=== PATIENT | female | born 1995 | race Caucasian/White ===

== ENCOUNTER 2024-01-28 02:52 | Emergency (ER) | payer BC, SELFPAY ==
[2024-01-28 02:54] VITALS: BP 112/74
--- NOTE | 2024-01-28 03:10 | ED.GENMED ---
History of Present Illness
General
Chief Complaint: Abdominal Pain
Source: patient
Exam Limitations: none
Time Seen by Provider: 01/28/24 03:00
Travel History
Have you had any contact with someone who has COVID-19?: No
Do you have any symptoms of coronavirus? Fever > 100 degrees, chills, cough, shortness of breath, sore throat, loss of taste or smell, muscle aches, or headache?: No
History of Present Illness
History of Present Illness:
See MDM
Past History
Past History
ED Past Medical History: Other (Complex right ovarian cyst)
ED Past Surgical History: None
Social History
Tobacco: Non-smoker
Alcohol: None
Personal: Single
Living: with family
Employment: Employed
Family History
Family History: Other (Noncontributory)
Phy Exam
Physical Exam
Physical Exam:
See MDM
Course
Orders/Labs/Results
Orders:
Orders
01/28/24 03:09
Ketorolac [Toradol] 30 mg IV NOW STA
US Pelvis [US Pelvis Only (non-obstetric)] Urgent
Comment:
Reason For Exam: LLQ pain
01/28/24 03:10
Test Result ONCE
01/28/24 03:12
Complete Blood Count/With Diff Urgent
Comprehensive Metabolic Panel Urgent
HCG, Serum Qualitative Screen Urgent
01/28/24 03:24
0.9% Sodium Chloride 1000 ml [Nss] 1,000 ml IV BOLUS
Abnormal Lab Results
01/28/24
03:12
WBC 11.6 H 10^3/uL
(4.8-10.8)
MCH 31.1 H pg
(27.0-31.0)
Absolute Neuts (auto) 9.0 H 10^3/uL
(1.4-6.5)
Absolute Monos (auto) 0.7 H 10^3/uL
(0.1-0.6)
Neutrophils % 77.4 H %
(42.2-75.2)
Lymphocytes % 15.4 L %
(20.5-51.1)
Glucose 128 H mg/dl
(70-99)
01/28/24 03:12
01/28/24 03:12
Vital Signs
Initial and Last Documented VS:
Initial Vital Signs
Temp Pulse Resp BP Pulse Ox
98.1 F 80 18 112/74 98
01/28/24 02:54 01/28/24 02:54 01/28/24 02:54 01/28/24 02:54 01/28/24 02:54
Last Documented Vital Signs
Temp Pulse Resp BP Pulse Ox
98.1 F 80 18 112/74 98
01/28/24 02:54 01/28/24 02:54 01/28/24 02:54 01/28/24 02:54 01/28/24 02:54
MDM/Problems Addressed
Differential Diagnosis Includes:
HPI and MDM Narrative:
28-year-old female presenting with left lower quadrant pain. The triage note references right lower quadrant pain but patient states it is on the left. She is concerned she has another ovarian cyst.
Patient has a history of endometriosis and ruptured ovarian cyst.
She denies urinary symptoms
Will give dose of Toradol and obtain basic blood work and pelvic ultrasound
Physical exam
General: Mildly uncomfortable
HEENT: protecting airway
Neck: appears supple
CV: No evidence of cyanosis
Resp: No accessory muscle use
Abd: Non-distended. Left lower quadrant pain. Negative McBurney sign. No rebound
Extremities: No deformities
Neuro: alert
Psych: Normal affect
Skin: Intact
Problems Addressed including Acute and Chronic Conditions affecting care:
1. Left lower quadrant pain
Acuity: acute
Prognosis: stable
Details: Given history of ovarian cyst, will obtain ultrasound rule out torsion. Will give Toradol
Updates
Ultrasound suggests left ovarian cyst versus endometrioma. There is no evidence of torsion. On reassessment, patient feeling much better. Will prescribe NSAIDs and discussed follow-up with her CONCRETE POURING SUPERVISOR
Differential Diagnosis (but not limited to): Ovarian cyst, kidney stone, ruptured ovarian
Testing considered: CT abdomen/pelvis
Drug therapy (if applicable): OTC meds, please see d/c instruction regarding Rx drugs
Amount and/or Complexity of Data Reviewed
Clinical info obtained from: Patient
External data reviewed: N/A
Labs I independently reviewed (but not limited to): hCG negative
Radiology: Ultrasound report
Pulse Ox: not hypoxic
EKG independently reviewed: N/A
Computational Geneticist: N/A
Critical Care: N/A
Risk of Complication:
Social Determinants of health: Good social support
Discussed with other providers: N/A
Escalation of Care includes Admit/Obs: After being observed in the Emergency Department, pt stable for discharge.
Occasional wrong word or 'sound a like' substitutions may have occurred due to the inherent limitations of voice recognition software. Read the chart carefully and recognize, using context, where substitutions have occurred.
*Critical Care Note
Total Time (30-74mins, 75-104mins- exclusive of procedures): Not Applicable
ED Attending Note
-
Portions of this chart may have been created with voice recognition software.� Occasional wrong word or��sound alike� substitutions may have occurred due to the inherent limitations of voice recognition software.
Discharge Plan
Departure
Patient Disposition: Home (Routine Discharge)
Date of Disposition: 01/28/24
Time of Disposition: 05:39
Patient with high blood pressure during this ER visit?: No
Discharge Problem:
Ovarian cyst
Instructions: Ovarian Cyst (DC)
Prescriptions:
New
diclofenac potassium 50 mg tablet
50 mg PO BID Qty: 20 0RF
No Action
escitalopram oxalate [Lexapro] 20 mg Tablet
20 mg PO DAILY
ibuprofen [Advil] 200 mg Tablet
400 mg PO DAILYPRN PRN (Reason: mild pain)
oxycodone 5 mg tablet
5 mg PO Q4H PRN (Reason: Pain) Qty: 10 0RF
ondansetron 8 mg tablet,disintegrating
8 mg PO TID PRN (Reason: nausea and vomiting) Qty: 20 0RF
Referrals:
Perez Farah MD [Family Provider] -
Activity Restrictions/Additional Instructions:
Please return for any worsening symptoms.
You may return at any time if you have further concerns.
Please follow up with your CONCRETE POURING SUPERVISOR doctor at the first available appointment, preferably this week.
Thank you for choosing [facility].
Interventions
Interventions:
*Risk Screen - Suicide Last Done: 01/28/24 02:54
*Neglect/Abuse Screening Last Done: 01/28/24 02:54
ED- Fall Risk Assessment Last Done: 01/28/24 03:38
HB-Kqkqyp-Xhfvzugxpf Assessment Last Done: 01/28/24 03:38
ED-Female Genitourinary Assessment Last Done: 01/28/24 03:38
Discharge Date and Time
Print Language: PALAUAN
[2024-01-28] MEDS: TORADOL 30 MG IV (03:18)
[2024-01-28] MEDS: NSS 1000 IV (03:24)
[2024-01-28 03:29] LABS: % Basophils 0.3 % (0-2); % Eosinophils 0.9 % (0-6); % Immature Granulocytes 0.3 % (0-0.5); % Lymphocytes 15.4 % (20.5-51.1); % Monocytes 5.7 % (1.7-9.3); % Neutrophils 77.4 % (42.2-75.2); Absolute Eosinophils 0.1 10^3/uL (0-0.7); Absolute Lymphocytes 1.8 10^3/uL (1.2-3.4); Absolute Monocytes 0.7 10^3/uL (0.1-0.6); Hematocrit 37.3 % (37.0-47.0); Hemoglobin 13.1 g/dL (12.0-16.0); Mean Corp Hgb Conc. 35.1 g/dL (33.0-37.0); Mean Corpuscular Hgb 31.1 pg (27.0-31.0); Mean Corpuscular Volume 88.6 fL (81.0-99.0); Mean Platelet Volume 10.3 fL (7.4-10.4); Nucleated Red Blood Cells % 0 %; Platelet Count 266 10^3/uL (130-400); Red Blood Cell Count 4.21 10^6/uL (4.20-5.40); Red Cell Dist. Width 12.9 % (11.5-14.5); White Blood Cell Count 11.6 10^3/uL (4.8-10.8)
[2024-01-28 03:32] VITALS: BMI 31.8
[2024-01-28 03:49] LABS: HCG, Serum Qualitative Screen Negative
[2024-01-28 03:57] LABS: ALT (SGPT) 16 U/L (0-35); AST (SGOT) 20 U/L (14-36); Albumin 4.3 g/dl (3.5-5.0); Alkaline Phosphatase 87 U/L (38-126); Blood Urea Nitrogen 13 mg/dl (7-17); Calcium 9.6 mg/dl (8.4-10.2); Carbon Dioxide 26 mmol/L (22-30); Chloride 107 mmol/L (98-107); Estimated Creatinine Clearance > 125 ml/min; Glucose 128 mg/dl (70-99); Potassium 4.2 mmol/L (3.5-5.1); Sodium 141 mmol/L (135-145); Total Bilirubin 0.3 mg/dl (0.2-1.3); Total Protein 6.9 g/dl (6.3-8.2); eGFR > 60.00
== END 2024-01-28 05:53 | disposition home or self-care (01) ==
LOC: EMR 02:52
PROVIDERS: EMERGENCY PHYSICIAN Student in an Organized Health Care Education/Training Program; FAMILY PHYSICIAN Internal Medicine Geriatric Medicine
DX: N83.201 Unspecified ovarian cyst, right side (principal); Z90.721 Acquired absence of ovaries, unilateral
CPT/HCPCS: 99284; 96374; 96361; 76856; 80053; 84703; 85025

== ENCOUNTER 2024-01-30 16:46 | Emergency (ER) | payer BC, SELFPAY ==
[2024-01-30 16:48] VITALS: BP 128/81
[2024-01-30 20:08] VITALS: BP 109/71
[2024-01-30] MEDS: DILAUDID IV (20:30)
[2024-01-30] MEDS: TORADOL 15 MG IV (20:30)
[2024-01-30] MEDS: NSS 500 IV (20:30)
[2024-01-30] MEDS: PROTONIX IV 40 MG IV (20:31)
[2024-01-30 21:00] VITALS: BP 115/58
--- NOTE | 2024-01-30 21:09 | ED.GENMED ---
History of Present Illness
General
Chief Complaint: Abdominal Pain
Source: patient and family
Exam Limitations: none
Time Seen by Provider: 01/30/24 19:29
Nursing documentation reviewed up to this point in time: agreed with
Travel History
Have you had any contact with someone who has COVID-19?: No
Do you have any symptoms of coronavirus? Fever > 100 degrees, chills, cough, shortness of breath, sore throat, loss of taste or smell, muscle aches, or headache?: No
History of Present Illness
History of Present Illness:
Patient with chronic lower abdominal/pelvic pain secondary to endometriosis, currently taking Orilissa, as prescribed by her WEATHERIZATION DIRECTOR physician at [facility], presents to ED secondary to worsening pain over the past 3 days. Patient was evaluated
in ED 2 days ago for similar complaint. Since then, patient states that her pain has worsened. Denies vomiting, although with nausea sensation. Denies diarrhea. Denies trauma. Denies fever or chills. Patient has an appointment with her WEATHERIZATION DIRECTOR
physician in 2 weeks. Pt was given diclofenac 2 days ago at discharge, which she has been taking with mild relief in symptoms.
Past History
Past History
ED Past Medical History: Other (Complex right ovarian cyst)
ED Past Surgical History: None
Social History
Tobacco: Non-smoker
Alcohol: None
Personal: Single
Living: with family
Employment: Employed
Family History
Family History: Other (Noncontributory)
Review of Systems
Review of Systems
Allergies reviewed?: Yes
All Other Systems: ROS reviewed and negative except as documented in HPI and ROS
Constitutional: Reports no symptoms
EENT: Reports no symptoms
Respiratory: Reports no symptoms
Cardiac: Reports no symptoms
ABD/GI: Reports abdominal pain and nausea; Denies vomiting
: Reports no symptoms
Musculoskeletal: Reports no symptoms
Skin: Reports no symptoms
Neurological: Reports no symptoms
Phy Exam
Physical Exam
Physical Exam:
Physical Exam
General: mild painful distress, not acutely ill. afebrile
Head: nc/at. eomi
Neck: supple. normal range of motion.
Heart: s1/s2 regular rate and rhythm, no murmur. equal radial pulses.
Lungs: no acute respiratory distress. clear bilaterally
Abdomen: normal bowel sounds. mild diffuse tenderness to palpation, without guarding
Neuro: alert and oriented. no focal neurological deficits
Skin: no rash
Psychiatric: well kept. interactive and cooperative
Extremities: no edema. no calf tenderness.
Course
Orders/Labs/Results
Orders:
Orders
01/30/24 20:18
HYDROmorphone [Dilaudid] 0.5 mg IV NOW STA
Ketorolac [Toradol] 15 mg IV NOW STA
01/30/24 20:19
0.9% Sodium Chloride 500 ml [Nss] 500 ml IV BOLUS
Pantoprazole [Protonix IV] 40 mg IV NOW STA
01/30/24 21:54
HYDROmorphone [Dilaudid] 0.5 mg IV NOW STA
01/30/24 22:14
Ondansetron Orally Disint [Zofran Odt (Orally Disintegrating)] 4 mg .ROUTE .STK-MED ONE
01/30/24 22:15
Ondansetron Orally Disint [Zofran Odt (Orally Disintegrating)] 4 mg PO NOW STA
Vital Signs
Initial and Last Documented VS:
Initial Vital Signs
Temp Pulse Resp BP Pulse Ox
98.4 F 94 16 128/81 100
01/30/24 16:48 01/30/24 16:48 01/30/24 16:48 01/30/24 16:48 01/30/24 16:48
Last Documented Vital Signs
Temp Pulse Resp BP Pulse Ox
98.4 F 92 16 106/55 95
01/30/24 16:48 01/30/24 22:04 01/30/24 16:48 01/30/24 22:04 01/30/24 22:04
MDM/Problems Addressed
MDM/Problems Addressed:
Patient's recent ED visit along with previous imaging studies reviewed and discussed with on-call WEATHERIZATION DIRECTOR physician, Dr. Nayak. Recommends urgent f/u with her ground mixer physician for re-evaluation. In the meantime, advised to discuss with her ground mixer physician
about increasing Orlissa to twice daily for better symptom control.
Patient reports moderate improvement symptoms after treatment. Patient and mother agree with treatment plan.
*Critical Care Note
Total Time (30-74mins, 75-104mins- exclusive of procedures): Not Applicable
ED Attending Note
-
Portions of this chart may have been created with voice recognition software.� Occasional wrong word or��sound alike� substitutions may have occurred due to the inherent limitations of voice recognition software.
Discharge Plan
Departure
Patient Disposition: Home (Routine Discharge)
Date of Disposition: 01/30/24
Time of Disposition: 21:55
Patient with high blood pressure during this ER visit?: Yes
Discharge Problem:
Pelvic pain
Instructions: Pelvic Pain (DC)
Prescriptions:
No Action
escitalopram oxalate [Lexapro] 20 mg Tablet
20 mg PO DAILY
ibuprofen [Advil] 200 mg Tablet
400 mg PO DAILYPRN PRN (Reason: mild pain)
oxycodone 5 mg tablet
5 mg PO Q4H PRN (Reason: Pain) Qty: 10 0RF
ondansetron 8 mg tablet,disintegrating
8 mg PO TID PRN (Reason: nausea and vomiting) Qty: 20 0RF
diclofenac potassium 50 mg tablet
50 mg PO BID Qty: 20 0RF
Referrals:
Perez Farah MD [Family Provider] -
Activity Restrictions/Additional Instructions:
As discussed, please call your WEATHERIZATION DIRECTOR physician tomorrow morning for earlier appointment. In the meantime, please take your already prescribed medication, Orilissa, twice daily along with diclofenac.
Interventions
Interventions:
*Risk Screen - Suicide Last Done: 01/30/24 22:53
*General Assessment Last Done: 01/30/24 22:53
*Neglect/Abuse Screening Last Done: 01/30/24 22:53
ED- Fall Risk Assessment Last Done: 01/30/24 16:48
*ED COVID-19 Vaccine History Last Done: 01/30/24 16:48
*Nursing Disposition Last Done: 01/30/24 22:53
UP-Glpqgg-Fcggwejuat Assessment Last Done: 01/30/24 18:20
Discharge Date and Time
Discharge Date/Time: 01/30/24 22:54
Print Language: GUATEMALAN
[2024-01-30] MEDS: DILAUDID 0.5 MG IV ×2 (21:11→22:03)
[2024-01-30 21:53] VITALS: BP 115/58
[2024-01-30 22:00] VITALS: BP 106/55
[2024-01-30 22:04] VITALS: BP 106/55
[2024-01-30] MEDS: ZOFRAN ODT (ORALLY DISINTEGRATING) 4 MG PO (22:17)
== END 2024-01-30 22:54 | disposition home or self-care (01) ==
LOC: EMR 16:46
PROVIDERS: EMERGENCY PHYSICIAN Emergency Medicine; FAMILY PHYSICIAN Internal Medicine Geriatric Medicine
DX: R10.2 Pelvic and perineal pain (principal); R03.0 Elevated blood-pressure reading, without diagnosis of hypertension
CPT/HCPCS: 99284; 96374; 96375 ×2; 96376

== ENCOUNTER 2024-02-05 06:47 | Day surgery (SDC) | payer BC, SELFPAY ==
[2024-02-04 19:06] VITALS: BP 132/99
[2024-02-04 19:32] LABS: % Basophils 0.4 % (0-2); % Eosinophils 3.9 % (0-6); % Immature Granulocytes 0.4 % (0-0.5); % Lymphocytes 46.8 % (20.5-51.1); % Monocytes 6.1 % (1.7-9.3); % Neutrophils 42.4 % (42.2-75.2); Absolute Eosinophils 0.3 10^3/uL (0-0.7); Absolute Lymphocytes 3.6 10^3/uL (1.2-3.4); Absolute Monocytes 0.5 10^3/uL (0.1-0.6); Absolute Neutrophils 3.2 10^3/uL (1.4-6.5); Hemoglobin 11.4 g/dL (12.0-16.0); Mean Corp Hgb Conc. 33.5 g/dL (33.0-37.0); Mean Corpuscular Hgb 30.3 pg (27.0-31.0); Mean Corpuscular Volume 90.4 fL (81.0-99.0); Mean Platelet Volume 9.9 fL (7.4-10.4); Nucleated Red Blood Cells % 0 %; Platelet Count 376 10^3/uL (130-400); Red Blood Cell Count 3.76 10^6/uL (4.20-5.40); Red Cell Dist. Width 12.5 % (11.5-14.5); White Blood Cell Count 7.7 10^3/uL (4.8-10.8)
[2024-02-04 19:52] LABS: ALT (SGPT) 14 U/L (0-35); AST (SGOT) 18 U/L (14-36); Albumin 4.2 g/dl (3.5-5.0); Alkaline Phosphatase 63 U/L (38-126); Blood Urea Nitrogen 15 mg/dl (7-17); Calcium 9.8 mg/dl (8.4-10.2); Carbon Dioxide 25 mmol/L (22-30); Chloride 104 mmol/L (98-107); Glucose 114 mg/dl (70-99); Lipase 67 U/L (23-300); Sodium 138 mmol/L (135-145); Total Bilirubin 0.3 mg/dl (0.2-1.3); Total Protein 6.9 g/dl (6.3-8.2); eGFR > 60.00
--- NOTE | 2024-02-04 20:08 | ED.GENMED ---
History of Present Illness
General
Chief Complaint: Abdominal Pain
Time Seen by Provider: 02/04/24 20:08
Travel History
Have you had any contact with someone who has COVID-19?: No
Do you have any symptoms of coronavirus? Fever > 100 degrees, chills, cough, shortness of breath, sore throat, loss of taste or smell, muscle aches, or headache?: No
History of Present Illness
History of Present Illness:
HPI: Patient presents with abdominal pelvic pain now with increasing pain.. She was seen in our ED 1 week ago[address] She saw Dr. Farias in the past and saw Dasha Hernandez once in the past. The pain is now described as excruciating.
EXAM:
GENERAL: The patient appears extremely uncomfortable upon arrival
HEENT: Moist oral mucosa
CARDIOVASCULAR: No murmurs, normal heart rate, regular rhythm, No chest wall tenderness
PULMONARY: No respiratory distress, breath sounds are clear and equal
ABDOMEN: Soft with no peritoneal signs but has severe diffuse tenderness
NEUROLOGIC: Excellent strength all extremities, no coordination deficits
PSYCHIATRIC: Appropriate mental status, normal insight and judgement
EXTREMITIES: Nontender, no edema, moves all extremities equally
SKIN: No rash, no lesions
TIME OF INITIAL ENCOUNTER: 8:30 PM
NUMBER AND COMPLEXITY OF PROBLEMS ADDRESSED AT THE ENCOUNTER
� Chronic conditions affecting care: Has had ovarian cysts, anxiety/depression
� Acute Exacerbation and/or Progression of Chronic Illness: This is an acute problem
� Differential Diagnosis includes: Ruptured cyst, ruptured mass, ruptured endometrioma, regular disease, bowel obstruction unlikely,
AMOUNT AND/OR COMPLEXITY OF DATA TO BE REVIEWED AND ANALYZED
� I performed an independent evaluation of and my interpretation is:
EKG:
CT: CT imaging shows concern for rupture of endometrioma in the low with hemoperitoneum
X-rays:
Laboratory Studies: White count 7.7, hemoglobin 11.4, chemistries including LFTs and lipase are normal
Other:
� Review of other/old records: I reviewed records, the patient had a pelvic ultrasound 1 week ago that showed no focal abnormality of the uterus, normal right ovary, and there was a 6.4 cm left ovarian mass likely representing an
endometrioma similar in size to the ultrasound from 2022
� Clinical information was obtained by an independent historian: I spoke to family member at bedside
� Prescriptions/Medications Considered but not given:
� Further testing considered but not performed:
RISK OF COMPLICATIONS AND/OR MORBIDITY OR MORTALITY OF PATIENT MANAGEMENT
� Social determinants of health affecting care: Lives at home
� Discussion with other providers: I discussed case with Dr. Samuel at 11:30 PM who will come in to evaluate the patient. At 12:30 AM, the Dr. Samuel is planning on taking patient to the OR.
� Escalation of care including admission/observation vs risk of discharge considered: CT does show concern for rupture of an endometrioma now measuring greater than 7 cm. Her hemoglobin has dropped in comparison to 1 week ago.
She arrived in severe pain was given analgesia.
Past History
Past History
ED Past Medical History: Other (Complex right ovarian cyst)
ED Past Surgical History: None
Social History
Tobacco: Non-smoker
Alcohol: None
Personal: Single
Living: with family
Employment: Employed
Family History
Family History: Other (Noncontributory)
Phy Exam
Physical Exam
Physical Exam:
See HPI
Course
Orders/Labs/Results
Orders:
Orders
02/04/24 19:27
CBC/With Diff [Complete Blood Count/With Diff] Urgent
CMP [Comprehensive Metabolic Panel] Urgent
HCG, Serum Qualitative Screen Urgent
Comment: ADD ON
Lipase Urgent
02/04/24 20:09
Add On- LAB Urgent
Tests Added?: hcg screen
02/04/24 20:18
CT Abd/pelvis W Iv Cont Urgent
Comment:
Reason For Exam: LLQ pain worsening; known L ov mass; recent US
HYDROmorphone [Dilaudid] 1 mg IV NOW STA
Ketorolac [Toradol] 15 mg IV NOW STA
Ondansetron Injectable [Zofran] 4 mg IV NOW STA
02/04/24 20:31
Add On- LAB Urgent
Tests Added?: hcg
02/04/24 23:46
0.9% Sodium Chloride 1000 ml [Nss] 1,000 ml IV BOLUS
Abnormal Lab Results
02/04/24
19:27
RBC 3.76 L 10^6/uL
(4.20-5.40)
Hgb 11.4 L g/dL
(12.0-16.0)
Hct 34.0 L %
(37.0-47.0)
Absolute Lymphs (auto) 3.6 H 10^3/uL
(1.2-3.4)
Creatinine 0.5 L mg/dL
(0.6-1.0)
Glucose 114 H mg/dl
(70-99)
02/04/24 19:27
02/04/24 19:27
Vital Signs
Initial and Last Documented VS:
Initial Vital Signs
Temp Pulse Resp BP Pulse Ox
98.5 F 95 17 132/99 97
02/04/24 19:06 02/04/24 19:06 02/04/24 19:06 02/04/24 19:06 02/04/24 19:06
Last Documented Vital Signs
Temp Pulse Resp BP Pulse Ox
98.5 F 82 17 112/57 97
02/04/24 19:06 02/04/24 23:49 02/04/24 19:06 02/04/24 23:49 02/04/24 19:06
*Critical Care Note
Total Time (30-74mins, 75-104mins- exclusive of procedures): Not Applicable
ED Attending Note
-
Portions of this chart may have been created with voice recognition software.� Occasional wrong word or��sound alike� substitutions may have occurred due to the inherent limitations of voice recognition software.
Discharge Plan
Departure
Prescriptions:
No Action
escitalopram oxalate [Lexapro] 20 mg Tablet
20 mg PO DAILY
ibuprofen [Advil] 200 mg Tablet
400 mg PO DAILYPRN PRN (Reason: mild pain)
oxycodone 5 mg tablet
5 mg PO Q4H PRN (Reason: Pain) Qty: 10 0RF
ondansetron 8 mg tablet,disintegrating
8 mg PO TID PRN (Reason: nausea and vomiting) Qty: 20 0RF
diclofenac potassium 50 mg tablet
50 mg PO BID Qty: 20 0RF
Referrals:
Perez Farah MD [Family Provider] -
Interventions
Interventions:
*Risk Screen - Suicide Last Done: 02/04/24 19:06
*General Assessment Last Done: 02/04/24 19:06
*Neglect/Abuse Screening Last Done: 02/04/24 19:06
ED- Fall Risk Assessment Last Done: 02/04/24 20:09
*ED COVID-19 Vaccine History Last Done: 02/04/24 19:32
LT-Xfoxog-Fimloccqde Assessment Last Done: 02/04/24 20:09
Discharge Date and Time
Print Language: BURMESE
[2024-02-04 20:09] VITALS: BMI 31.1
[2024-02-04] MEDS: DILAUDID 1 MG IV (20:26)
[2024-02-04] MEDS: TORADOL 15 MG IV (20:27)
[2024-02-04] MEDS: ZOFRAN 4 MG IV (20:27)
[2024-02-04 21:30] LABS: HCG, Serum Qualitative Screen Negative
[2024-02-04 23:49] VITALS: BP 112/57
[2024-02-05] VITALS (14 sets, daily range): BP systolic 103–127; BP diastolic 54–76
[2024-02-05] MEDS: NSS 1000 IV ×3 (00:13→16:14)
[2024-02-05] MEDS: DILAUDID 0.25 MG IV (01:27)
[2024-02-05] MEDS: ANCEF 5 MG IV (01:37)
[2024-02-05] MEDS: DILAUDID 0.5 MG IV ×2 (02:08→06:50)
--- NOTE | 2024-02-05 06:29 | OR.RPT ---
Operative Report
Operative Report
INTRAOPERATIVE CONSULT
DATE OF OPERATION: 02/05/24
SURGEON: Maurice Fairbanks MD
PREOPERATIVE DIAGNOSIS: Ruptured ovarian cyst with hemoperitoneum
POSTOPERATIVE DIAGNOSIS: Same
OPERATION: Diagnostic laparoscopy; per STEEL UNLOADER left oophorectomy
ASSISTANTS:
1. Jaelyn Samuel MD
ANESTHESIA: Geta
ESTIMATED BLOOD LOSS: Per STEEL UNLOADER op note
FINDINGS:
1. Left ovary with ruptured bleeding cyst; somewhat adherent to the retroperitoneum near the rectosigmoid requiring meticulous dissection
SPECIMENS:
1. Per STEEL UNLOADER op note
COMPLICATIONS: Per STEEL UNLOADER
INDICATIONS: The patient is a 28-year-old female who presented acutely to the [place] emergency department. Documentation in the EMR currently is limited, but appears the patient has been having acute abdominal pain that has worsened over the
last week. A CT scan was done showing likely ruptured ovarian cyst with hemoperitoneum, so the patient was taken to the OR by Dr. Samuel urgently. I received an intraoperative consult from her as the left ovary appeared adherent to the
rectosigmoid colon. I arrived shortly after receiving the message. The patient was intubated, under anesthesia, in lithotomy with yellowfin's and in Trendelenburg. There was a Mane umbilical port with 2 bilateral lower abdominal [address] Samuel showed me the area of bleeding from the ovary. There was clearly a large amount of clot that had been suctioned and a small area of active oozing from where the ovarian cyst had ruptured. She stated that she had attempted multiple
times to control the hemorrhage without removing the ovary. However, at this point, she was unable to control the hemorrhage and therefore a oophorectomy was planned. More medially, the ovary appeared adherent to the rectosigmoid colon. She
requested my assistance in freeing up the ovary from the colon. Therefore I scrubbed in.
PROCEDURE IN DETAIL: I placed the patient in slightly more Trendelenburg and switched the camera to a 5�30. I thoroughly suctioned the pelvis in order to better visualize the rectum and mesorectum. The right ovary appeared normal and was not
involved. The uterus was deeper in the pelvis but the fundus did appear to be slightly adherent to the left ovary. The omentum was inflamed and adherent to the small bowel in the lower abdomen, clearly having walled off of the ruptured cyst. I
was able to retract the omentum more cephalad in order to improve visualization. After making these adjustments, the medial aspect of the ovary appeared more adherent to retroperitoneum and mesocolon as opposed to actual serosa of the rectum. In
order to confirm this, I passed a small EEA sizer transanally under laparoscopic visualization to delineate the boundaries of the lumen of the rectum. After doing so, it was clear that the ovary was not adherent to the lumen of the bowel.
Therefore, I suggested continuing the posterior dissection of the ovary, but staying close to the ovary. I took a few bites of the posterior attachments and divided with the laparoscopic LigaSure. Then, Dr. Samuel dissected the left ovary
medially, which she will dictate in her operative report. Eventually, the ovary was removed. Hemostasis was achieved. I passed up the small EEA sizer once more to ensure no injury to the bowel wall, which was confirmed. Therefore, my portion of
the procedure was finished. The remainder of the procedure was completed by Dr. Samuel and will be dictated by her.
Of note, Jaelyn Samuel MD, was necessary to assist me during my portion of the procedure for traction, countertraction, and exploratory purposes. I was present for just for my portion of the case, as dictated above.
DISPOSITION: As there was no bowel involvement, colorectal surgery will sign off. No dietary restrictions or follow-up needed. Please call for any questions or concerns.
DICTATED BY: Maurice Fairbanks MD
[2024-02-05] MEDS: COMPAZINE 5 MG IV (06:59)
[2024-02-05] MEDS: ZOFRAN 4 MG IV (07:09)
--- NOTE | 2024-02-05 08:30 | PTCARENOTE ---
Patient arrived from PACU s/p ovary cystectomy and oophorectomy. Drowsy, arouses to voice.
3 Lap Sites with small amount of drainage, otherwise CDI. Assessment completed and documented in shift assessment.
[2024-02-05 10:07] LABS: Hematocrit 26.3 % (37.0-47.0); Mean Corp Hgb Conc. 34.6 g/dL (33.0-37.0); Mean Corpuscular Hgb 30.6 pg (27.0-31.0); Mean Corpuscular Volume 88.6 fL (81.0-99.0); Mean Platelet Volume 9.9 fL (7.4-10.4); Platelet Count 314 10^3/uL (130-400); Red Blood Cell Count 2.97 10^6/uL (4.20-5.40); Red Cell Dist. Width 12.6 % (11.5-14.5); White Blood Cell Count 12.6 10^3/uL (4.8-10.8)
[2024-02-05 10:22] LABS: Hemoglobin 9.1 g/dL (12.0-16.0)
--- NOTE | 2024-02-05 11:29 | CM ---
Met with pt and her mother at bedside
Pt lives with her parents and brother in a 2 story home
Independent, works FT, drives
DME - none
SNF/HH - no history
PCP - Dr Emiliana Gruber
Pharm - [facility]
Has ride at d/c
CM will follow for d/c needs
Plan - anticipate home no needs
[2024-02-05] MEDS: TORADOL 10 MG IV (16:25)
--- NOTE | 2024-02-05 17:09 | W.PN.GYN.DG ---
Today's Communication / Plan
-
Ready for d/c home
Assessment / Plan
-
Assessment: Pt is a 28 y/o with a Ruptured Left ovarian cyst who needed LPS LSO secondary to ongoing bleeding and not able to get ovary to be hemostatic otherwise
Surgery d/w pt and pt's mom. Pt understands LSO was done because bleeding was not able to be controlled otherwise
Approp HGB drop.
Afebrile and VSS- HD stable
No clinical signs of on going bleeding
Plan:
Ok for d/c home today
Will f/u with me in the office in 2 weeks
Rxs for percocet and ibuprofen erxed to pt's pharm
Limitations and restrictions d/w pt
Subjective / Objective Data
Subjective Data
Pt with some nausea. Not much of an appetite. Hasn't needed percocet. Good pain control
No CP/SOB/ leg or back pain. Scant vaginal bleeding.
Objective Data
Vital Signs
Temp Pulse Resp BP Pulse Ox
98.6 F 100 16 115/68 97
02/05/24 12:00 02/05/24 15:00 02/05/24 15:00 02/05/24 15:00 02/05/24 15:00
Intake & Output
02/04/24 02/05/24 02/06/24
06:59 06:59 06:59
Intake Total 300 / 300
Balance 300 / 300
Intake:
IV fluids (Total) 300 / 300
normosol 300 / 300
Physical Exam
-
Cardiac: Regular rate & rhythm
Lungs: Clear: Bilateral
Abdomen: Soft
Bowel Sounds: Normal
Extremities: No Calf Tenderness and No Edema
Incision: Clean, Dry, Intact and No Erythema
Other Findings:
Approp tender
Data Reviewed
-
Lab Data
02/05/24 09:57
02/04/24 19:27
--- NOTE | 2024-02-05 18:00 | PTCARENOTE ---
Patient ready for discharge. Removed IV. Went over discharge instructions with patient and patient's mother.
Patient assisted out of hospital by staff to mother's car.
== END 2024-02-05 18:20 | disposition home or self-care (01) ==
LOC: PACU 06:47
PROVIDERS: ATTENDING PHYSICIAN Obstetrics & Gynecology Gynecology; EMERGENCY PHYSICIAN Emergency Medicine; FAMILY PHYSICIAN Internal Medicine Geriatric Medicine
DX: N83.202 Unspecified ovarian cyst, left side (principal); N85.4 Malposition of uterus; K66.1 Hemoperitoneum
CPT/HCPCS: 58661; 88305; 74177; 80053; 83690; 84703; 85025; 85027; 88341; 88342; Q9967

== ENCOUNTER 2025-02-05 14:29 | Emergency (ER) | payer SELFPAY ==
[2025-02-05 14:37] VITALS: BP 134/81
--- NOTE | 2025-02-05 14:37 | ED.GENMED ---
History of Present Illness
General
Chief Complaint: Musculo-Skeletal Complaint
Source: patient
Exam Limitations: none
Time Seen by Provider: 02/05/25 14:34
History of Present Illness
History of Present Illness:
29yoF presenting via EMS for evaluation of a right knee injury. Patient was at work this afternoon when she pivoted and felt her right kneecap dislocate laterally. This caused her to fall. She was able to reduce the patella with knee extension.
She reports continued pain in the right knee. She has dislocated her left patella in the past but has never dislocated her right patella. No paresthesias. She denies other injuries.
Past History
Past History
ED Past Medical History: Other (Complex right ovarian cyst)
ED Past Surgical History: None
Social History
Tobacco: Non-smoker
Alcohol: None
Personal: Single
Living: with family
Employment: Employed
Family History
Family History: Other (Noncontributory)
Phy Exam
General Physical Exam
General Presentation: well appearing and no apparent distress
General Skin: warm and dry
General Habitus: normal
General Mental: alert
ENT Exam
ENT Exam: normocephalic
Neurological Exam
Neurological Exam: alert
[place] Coma Scale
Eye Opening: Spontaneous
Verbal Response: Oriented
Motor Response: Obeys Commands
GCS Total Score: 15
Musculoskeletal Exam
Musculoskeletal Exam: other (R knee: No deformity noted. +Generalized tenderness with joint effusion. Skin intact. ROM decreased 2/2 pain. 2+ DP pulse.)
Skin Exam
Skin Exam: normal color and warm/dry
Psychiatric Exam
Psychiatric Exam: normal mood/affect
Course
Orders/Labs/Results
Orders:
Orders
02/05/25 14:34
Knee Immobilizer Right-Treatme ONCE
Acetaminophen [Tylenol] 1,000 mg PO NOW STA
Ibuprofen [Motrin] 600 mg PO NOW STA
CR Knee- Right 4 Or More View* Urgent
Comment:
Reason For Exam: patellar dislocation
02/05/25 15:12
Crutches-Treatment ONCE
Vital Signs
Initial and Last Documented VS:
Initial Vital Signs
Temp Pulse Resp BP Pulse Ox
97.8 F 81 16 134/81 100
02/05/25 14:37 02/05/25 14:37 02/05/25 14:37 02/05/25 14:37 02/05/25 14:37
Last Documented Vital Signs
Temp Pulse Resp BP Pulse Ox
97.8 F 81 16 134/81 100
02/05/25 14:37 02/05/25 14:37 02/05/25 14:37 02/05/25 14:37 02/05/25 14:37
MDM/Problems Addressed
Differential Diagnosis Includes:
29yoF here for a R knee injury. Pivoted and felt her R patella dislocated laterally. She was able to self-reduce prior to arrival. 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 No deformity noted on exam. RLE is neurovascularly intact.
Differential diagnosis includes but is not limited to: patellar dislocation, fracture, sprain
X-rays obtained which show a moderate sized joint effusion and patella sudihr. No fractures. Knee immobilizer and crutches provided. Supportive care discussed. Advised f/u with orthopedics.
*Critical Care Note
Total Time (30-74mins, 75-104mins- exclusive of procedures): Not Applicable
ED Attending Note
-
Portions of this chart may have been created with voice recognition software.� Occasional wrong word or��sound alike� substitutions may have occurred due to the inherent limitations of voice recognition software.
Discharge Plan
Departure
Patient Disposition: Home (Routine Discharge)
Date of Disposition: 02/05/25
Time of Disposition: 15:13
Patient with high blood pressure during this ER visit?: No
Discharge Problem:
Closed dislocation of right patella
Instructions: Dislocated Kneecap (DC)
Prescriptions:
No Action
escitalopram oxalate [Lexapro] 20 mg Tablet
20 mg PO DAILY
Referrals:
Tl Davila MD [Active] -
Perez Farah MD [Family Provider] -
Stand Alone Forms: Return to Work
Activity Restrictions/Additional Instructions:
Wear knee immobilizer and use crutches. Ice and elevate your knee to help with swelling. Take Tylenol and ibuprofen for pain.
Please call today to schedule a follow-up with orthopedics.
Interventions
Interventions:
*Risk Screen - Suicide Last Done: 02/05/25 14:36
*General Assessment Last Done: 02/05/25 14:36
*Neglect/Abuse Screening Last Done: 02/05/25 14:36
*ED- Fall Risk Assessment Last Done: 02/05/25 14:38
*ED COVID-19 Vaccine History Last Done: 02/05/25 14:38
Discharge Date and Time
Print Language: THAI
[2025-02-05 14:38] VITALS: BMI 33.1
[2025-02-05] MEDS: TYLENOL 1000 MG PO (14:43)
[2025-02-05] MEDS: MOTRIN 600 MG PO (14:43)
== END 2025-02-05 15:44 | disposition home or self-care (01) ==
LOC: EMR 14:29
PROVIDERS: EMERGENCY PHYSICIAN Emergency Medicine; FAMILY PHYSICIAN Internal Medicine Geriatric Medicine
DX: S83.004A Unspecified dislocation of right patella, initial encounter (principal); W19.XXXA Unspecified fall, initial encounter
CPT/HCPCS: 99283; 29505; 73564

== ENCOUNTER 2025-03-12 06:12 | Day surgery (SDC) | payer OTHER, BC, SELFPAY ==
--- NOTE | 2025-03-04 09:41 | VNURNOTE ---
Chart reviewed. Case discussed w/surg coordinator Mariana. Per H&P: Procedure anticipated: R knee arthroscopy w/ chondroplasty, open MPFL reconstruction w/allograft. No indications noted for VN.
[2025-03-12] VITALS (8 sets, daily range): BP systolic 117–139; BP diastolic 62–86; BMI 31.3
[2025-03-12] MEDS: CELEBREX 200 MG PO (08:31)
[2025-03-12] MEDS: TYLENOL 1000 MG PO (08:31)
[2025-03-12] MEDS: NORMOSOL-R/PLASMALYTE-A 1000 IV (08:32)
[2025-03-12] MEDS: DILAUDID 0.5 MG IV (11:20)
== END 2025-03-12 13:05 | disposition home or self-care (01) ==
LOC: SDS 06:12
PROVIDERS: ATTENDING PHYSICIAN Specialist
DX: S76.111A Strain of right quadriceps muscle, fascia and tendon, initial encounter (principal); X58.XXXA Exposure to other specified factors, initial encounter; M25.361 Other instability, right knee; Z87.39 Personal history of other diseases of the musculoskeletal system and connective tissue
CPT/HCPCS: 27427; C1713; 73560; 76000; C1763; C1776

== ENCOUNTER 2025-08-14 20:55 | Emergency (ER) | payer BC, SELFPAY ==
[2025-08-14 20:57] VITALS: BP 149/111
--- NOTE | 2025-08-14 21:32 | ED.GENMED ---
History of Present Illness
General
Chief Complaint: Musculo-Skeletal Complaint
Time Seen by Provider: 08/14/25 21:32
History of Present Illness
History of Present Illness:
FOCUSED PAST MEDICAL HISTORY
- Ovarian cyst, anxiety
REVIEW OF OLD RECORDS
- The patient had right knee medial patellofemoral ligament reconstruction with allograft surgery with Dr. Davila February 2025
Note:
CHIEF COMPLAINT(S)
Left second toe contusion.
HISTORY OF PRESENT ILLNESS
The patient is a 30-year-old female presenting with pain in the left second toe following a recent incident today where she stubbed her toe against a base in a box. The patient describes immediate pain following the incident. An X-ray was performed
and showed no evidence of fracture fragments or obvious breaks; however, symptoms of a sprained toe remain a possibility. The patient reports slight improvement following the intake of Ibuprofen (Advil). Upon examination, no subungual hematoma. The
pain is localized more to certain areas upon palpation. The treatment plan includes taping the affected toe to the adjacent toe for support, assuming the possibility of a small fracture not visible on the X-ray. The patient has crutches available,
though it was suggested crutches or a walking boot could be an option if needed, although they might not provide significant relief in this particular case. The patient was advised to continue with Ibuprofen for pain management, specifically taking
up to 800 mg as needed.
REVIEW OF SYSTEMS
- Musculoskeletal: Pain localized to the left second toe following an impact injury.
PHYSICAL EXAM
General: Alert, no acute distress except when left second toe was manipulated.
Skin: Warm, dry.
Head: Normocephalic, atraumatic.
Neck: Supple, trachea midline.
Eye Ears, Nose, Mouth and Throat: Oral mucosa moist.
Cardiovascular: Normal peripheral perfusion, no edema.
Respiratory: Respirations are non-labored.
Gastrointestinal : Abdomen nondistended.
Back: Normal range of motion, normal alignment.
Musculoskeletal: Localized pain upon palpation of the left second toe, no evidence of subungual hematoma noted. Normal range of motion otherwise.
Neurological: Alert and oriented to person, place, time, and situation. No focal neurological deficit observed.
Psychiatric: Cooperative, appropriate mood & affect.
PLAN
- Taping of the left second toe to the adjacent toe for support.
- Continue with Ibuprofen, advised up to 800 mg as needed for pain relief.
- Monitor symptoms and return if any worsening or new symptoms develop.
DIFFERENTIAL DIAGNOSIS
The Differential Diagnosis includes, in no particular order and is not limited to:
1. Toe fracture.
2. Toe sprain.
3. Subungual hematoma.
4. Contusion.
5. Metatarsalgia.
6. Tendon injury.
7. Gout.
8. Infection.
9. Arthritis.
10. Neuroma.
Disposition:
SUMMARY OF ENCOUNTER
The patient is a 30-year-old female presenting with pain in the left second toe after stubbing it against a base of a box earlier today. An X-ray was performed and did not show any fracture fragments or obvious breaks. However, the symptoms are
consistent with a contusion or sprain. Management included the recommendation of NSAID pain relief (Ibuprofen) and juanjose taping the toe for support. The patient reported slight improvement with Ibuprofen.
PLAN
- Taping of the left second toe to the adjacent toe for support.
- Continue with Ibuprofen, advised up to 800 mg as needed for pain relief.
- Monitor symptoms and return if any worsening or new symptoms develop.
RADIOLOGY RESULTS
- My independent interpretation of the foot X-ray indicates no evidence of fractures or obvious breaks.
PATIENT EDUCATION AND COUNSELING
The patient was educated about managing symptoms with Ibuprofen for pain relief and the technique of juanjose taping the toe to the adjacent toe for support. She was advised to monitor symptoms and to return if there is any symptom worsening or
development of new symptoms.
MEDICATION RECONCILIATION
- Prescription for Ibuprofen, up to 800 mg as needed for pain relief.
MEDICAL DECISION MAKING
Number and Complexity of Problems Addressed:
- Chronic conditions affecting care: None.
- DDx: Toe fracture, Toe sprain, Subungual hematoma, Contusion, Metatarsalgia, Tendon injury, Gout, Infection, Arthritis, Neuroma.
Data:
Category 1
- Radiology reviewed: X-ray was interpreted independently and showed no fractures.
Risk:
- Prescription medication management, Ibuprofen is prescribed for pain relief.
DIAGNOSIS
- Contusion of left second toe, ICD-10: S90.12XA
- Sprain of unspecified ligament of left second toe, ICD-10: S93.502A
RADIOLOGY
- X-ray of left second toe shows no fracture by my read
UPDATE
- Although patient reports rather significant pain with palpation and walking, no definite fracture on x-ray
- Recommend NSAIDs
Past History
Past History
ED Past Medical History: Other (Complex right ovarian cyst)
ED Past Surgical History: None
Social History
Tobacco: Non-smoker
Alcohol: None
Personal: Single
Living: with family
Employment: Employed
Family History
Family History: Other (Noncontributory)
Phy Exam
Physical Exam
Physical Exam:
See HPI
Course
Orders/Labs/Results
Orders:
Orders
08/14/25 20:59
Toes 2 Views, Left CR [CR Toe(s) Min 2 Vw Left] Urgent
Comment:
Reason For Exam: injury, pain
Indicate Which Toe:: Second
08/14/25 21:46
Juanjose Tape Left-Treatment ONCE
Vital Signs
Initial and Last Documented VS:
Initial Vital Signs
Temp Pulse Resp BP Pulse Ox
36.8 C 91 18 149/111 94
08/14/25 20:57 08/14/25 20:57 08/14/25 20:57 08/14/25 20:57 08/14/25 20:57
Last Documented Vital Signs
Temp Pulse Resp BP Pulse Ox
36.8 C 91 18 149/111 94
08/14/25 20:57 08/14/25 20:57 08/14/25 20:57 08/14/25 20:57 08/14/25 21:34
*Pulse Oximetry
SaO2: 94
Oxygen Mode of Delivery: Room air
Patient hypoxic: no
*Critical Care Note
Total Time (30-74mins, 75-104mins- exclusive of procedures): Not Applicable
ED Attending Note
-
Portions of this chart may have been created with voice recognition software.� Occasional wrong word or��sound alike� substitutions may have occurred due to the inherent limitations of voice recognition software.
Discharge Plan
Departure
Patient Disposition: Home (Routine Discharge)
Date of Disposition: 08/14/25
Time of Disposition: 21:44
Patient with high blood pressure during this ER visit?: Yes
Discharge Problem:
Contusion of second toe of left foot
Instructions: Common toe injuries, BLOOD PRESSURE
Prescriptions:
No Action
escitalopram oxalate [Lexapro] 20 mg Tablet
20 mg PO DAILY
norethindrone-e.estradiol-iron [Tilia Fe] 1-20(5)/1-30(7) /1mg-35mcg (9) tablet
1 tab PO DAILY
bupropion HCl 150 mg tablet extended release 24 hr
150 mg PO HS
Referrals:
Sabiha Muniz DO [Family Provider, Family Practice]
Activity Restrictions/Additional Instructions:
I recommend 3-4 [id number] ibuprofen (Motrin) every 8 hours with food for a few days. Return here if worse. We will call you if the radiologist sees anything concerning on the x-ray when he/she reads it tomorrow. I do not see any
abnormality.
Interventions
Interventions:
*Risk Screen - Suicide Last Done: 08/14/25 20:57
*General Assessment Last Done: 08/14/25 21:18
*Neglect/Abuse Screening Last Done: 08/14/25 20:57
*ED- Fall Risk Assessment Last Done: 08/14/25 21:18
*ED COVID-19 Vaccine History Last Done: 08/14/25 21:18
*ED Influenza Vaccine History Last Done: 08/14/25 21:18
*Nursing Disposition Last Done: 08/14/25 21:48
ED-Musculoskeletal Assessment Last Done: 08/14/25 21:19
Discharge Date and Time
Discharge Date/Time: 08/14/25 22:00
Print Language: [id number]
== END 2025-08-14 22:00 | disposition home or self-care (01) ==
LOC: EMR 20:55
PROVIDERS: EMERGENCY PHYSICIAN Emergency Medicine; FAMILY PHYSICIAN Family Medicine
DX: S93.505A Unspecified sprain of left lesser toe(s), initial encounter (principal); S90.122A Contusion of left lesser toe(s) without damage to nail, initial encounter; W22.8XXA Striking against or struck by other objects, initial encounter; R03.0 Elevated blood-pressure reading, without diagnosis of hypertension; F41.9 Anxiety disorder, unspecified; N83.209 Unspecified ovarian cyst, unspecified side; Z88.5 Allergy status to narcotic agent; Z91.013 Allergy to seafood; Z91.048 Other nonmedicinal substance allergy status
CPT/HCPCS: 99283; 73660